=== PATIENT | female | born 1940 | race Two or more races ===

== ENCOUNTER → 2017-07-13 | Outpatient (CLI) | payer OTHER ==
--- NOTE | ~2017-07-13 | MR32 ---
[facility] A Service of [facility] RADIOLOGY TEXT RESULTS PATIENT: KODY FERNANDO LOCATION: [facility] : 42 UNIT #: [id number] AGE: [address]: SUSAN GAN MD SEX: F ORDER DR: [id number] [facility] [address] [place], [place] [address] [id number] O MR#: [id number] #: [id number] NAME: KODY FERNANDO : 1940 SEX: F STUDY DATE/TIME: 07/13/2017 13:41 UNIT: [facility] ROOM: STUDY DESCRIPTION: MR Cervical Wo Contrast Attending Physician: Susan Gan M.D. Referring Physician: Susan Gan M.D. Ordering Physician: Susan aGn M.D. Primary Care Physician: Susan Gan M.D. MRI CENTER REPORT This report is preliminary unless electronic signature is present. EXAM Cervical spine MRI without. HISTORY Spinal stenosis. Neck pain for 8 years. Popping in neck with turning of head, worse in the last few days. Numbness and tingling in both arms and hands for 5 years, greater on the left. No known injury. No history of cancer. TECHNIQUE MRI of the cervical spine performed without contrast using routine 1.5T imaging technique. FINDINGS There is mild reversal of cervical lordosis. There is multiple level endplate spondylosis and disc desiccation with loss of intervertebral disc height. This is most severe at C5-6 where there is also quite prominent mixed marrow endplate degenerative change. Findings are not suggestive of diskitis given the amount of disc desiccation seen. Otherwise, the marrow signal intensity is within the range of normal allowing for milder marrow endplate degenerative changes other levels. There is no Chiari-I malformation. The cervical cord is normal in size and there is no reproducible focus of cord signal abnormality. At C2-3, there is no canal stenosis. There is mild left-side foraminal narrowing. There is facet degenerative change, probably mild bilaterally. At C3-4, there is facet degenerative change bilaterally fairly severe on the left more moderate on the right and there is concentric desiccated disc osteophyte complex with uncovertebral osteophyte formation. There is mild anterior cord flattening and very mild canal stenosis and approximately thin-qg-[id number] right and more severe left-side foraminal impingement. [facility] A Service of [facility] RADIOLOGY TEXT RESULTS PATIENT: KODY FERNANDO LOCATION: [facility] : 42 UNIT #: [id number] AGE: [address]: SUSAN GAN MD SEX: F ORDER DR: At C4-5, there is bilateral facet degenerative change worse to the right where it is [id number], [id number] on the left. There is endplate spondylosis and concentric disc bulging with some uncovertebral osteophyte formation. There is mild flattening of the anterior thecal sac but no canal stenosis. Bilateral foraminal impingement is severe right, [id number] left. C5-6, concentric desiccated disc osteophyte complex moderate with uncovertebral osteophyte formation. Mild effacement of the anterior thecal sac. Fairly severe foraminal impingement bilaterally. Very mild canal stenosis. C6-7, mild facet degenerative change bilaterally. Mild concentric disc bulging and endplate spondylosis with some uncovertebral osteophyte formation. There is no central canal stenosis. Foraminal narrowing is severe on the left and moderate on the right. At C7-T1, there is bilateral facet degenerative change which is fairly severe and there is subtle anterolisthesis of C7 on T1 due to this. There is no canal stenosis but there is mild bilateral foraminal narrowing. There are disc protrusions in the upper thoracic spine, largest at T2-3 with some effacement of the anterior thecal sac. IMPRESSION Multiple level cervical degenerative change detailed above. Very mild canal stenosis is present. Multilevel severe foraminal compromise present. Please refer to the [id number] discussion and correlate with the patient's radicular symptoms. Most prominent disc osteophyte complex and marrow endplate degenerative change at the C5-6 level. Dictated by... Rosamaria Larson M.D. THIS IS AN ELECTRONICALLY VERIFIED REPORT Rosamaria Larson M.D. at 07/14/2017 2:50 PM ALY/josé miguel TD: 07/14/2017 01:24 JOB #: [id number] MRI CENTER REPORT Page 1 of 1 COPY
== END | disposition home or self-care (01) ==
LOC: CMRI 12:50
DX: M48.02 Spinal stenosis, cervical region (principal); M47.892 Other spondylosis, cervical region; M25.78 Osteophyte, vertebrae; M99.81 Other biomechanical lesions of cervical region; M43.13 Spondylolisthesis, cervicothoracic region
CPT/HCPCS: 72141